=== PATIENT | male | born 1950 | race Hispanic/Latino ===

== ENCOUNTER 2017-07-31 07:37 | Day surgery (SDC) | payer OTHER ==
[2017-07-31] MEDS ORDERED: NS 0.9% VIAL 10 ML ONE (08:19)
[2017-07-31] MEDS ORDERED: PHENYLEPHRINE 10% OPTH 5ML OPTH ONE ×2 (08:35→08:40)
[2017-07-31] MEDS ORDERED: CYCLOPENTOLATE 1% OPTH 2 ML OPTH ONE ×2 (08:35→08:40)
[2017-07-31] MEDS ORDERED: NA CHLORIDE 0.9% 500 ML ONE (09:00)
[2017-07-31] MEDS ORDERED: LIDOCAINE 2% MPF 5 ML VIAL ONE ×2 (09:01→09:58)
[2017-07-31] MEDS ORDERED: BUPIVACAINE 0.25% PF 10 ML VIAL ONE (09:01)
[2017-07-31] MEDS ORDERED: TETRACAINE HCL 0.5% 2ML OPTH ONE (09:01)
[2017-07-31] MEDS ORDERED: CYCLOPENTOLATE 1% OPTH 2 ML ONE (09:01)
[2017-07-31] MEDS ORDERED: LIDOCAINE HCL/PF 3.5% OPTH GEL ONE (09:02)
[2017-07-31] MEDS ORDERED: PHENYLEPHRINE 10% OPTH 5ML ONE (09:02)
[2017-07-31] MEDS ORDERED: PROPOFOL 200 MG/20 ML VIAL IV ONE (09:58)
[2017-07-31] MEDS: EPINEPHRINE/PF 1 MG/ML AMP ONE ×2 (10:02→10:12)
[2017-07-31] MEDS: BALANCED SALT IRRIG PLAIN 500 ML BTL IRR ONE ×2 (10:02→10:12)
[2017-07-31] MEDS: MOXIFLOXACIN HCL 10 DROPS/ML **OR USE OPTH ONE ×2 (10:03→10:12)
[2017-07-31] MEDS: DUOVISC 1 KIT OPTH ONE ×2 (10:03→10:12)
--- NOTE | 2017-07-31 10:47 | P.BOP ---
Preoperative diagnosis: Nuclear sclerotic and posterior subcapsular cataract OS Postoperative diagnosis: Same Primary procedure: Phacoemulsification with IOL OS Estimated blood loss: None Anesthesia: Local (Subtenon's infusion with anesthesia for cataract surgery) Complications: None Implants: ZCB00 +19.5 Transferred to: Other (Day surgery) Condition: Good
--- NOTE | 2017-07-31 21:23 | OP ---
Date of Procedure: 07/31/2017 Surgeon: Namita Worley MD Anesthesiologist: 1. Dk. 2. Manuel De Jesus CRNA. 3. Cale Arellano M.D. Preoperative Diagnoses: Nuclear sclerotic and posterior subcapsular cataract OS (left eye). Operation Performed: Phacoemulsification with intraocular lens implant, OS (left eye). Anesthesia: Per cataract surgery. Complications: None. Description Of Procedure: In day surgery, the patient was prepped with Betadine and draped. A conju nctival incision was made in the inferior nasal quadrant with Marcellus scissors. A sub-Tenon block c onsisting of a 1:1 mixture of 2% Xylocaine and 0.25% bupivacaine was placed through the conjunctival incision with a blunt cannula. A Honan balloon was placed over the eye and the patient was transferr ed to the operating room. In the operating room the patient was prepped and draped in the usual sterile fashion for ophthalmic surgery. A lid speculum was placed in the OS. Two paracentesis sites were made superiorly and infer iorly in the limbal cornea. Viscoat was placed in the anterior chamber and a crescent blade was used to make a corneal groove and tunnel, and a keratome was used to enter the anterior chamber. Provisc was placed in the anterior chamber and a 360 degree capsulotomy was performed with a cystitome. The lens was hydrodissected with BSS and rotated freely. The lens was removed with a stop and chop tech nique. A 5.31 phaco CDE was used to remove the lens. Residual cortex was removed with the irrigatio n and aspiration. Provisc was placed in the capsular bag. A ZCB00 +19.5 diopter lens was placed in the capsular bag without complications. Irrigation and aspiration was used to remove residual viscoe lastic. The paracentesis sites were hydrated with BSS. The wound and paracentesis sites were inspec kana and found to be watertight. Vigamox 0.07 cc was placed intracamerally at the end of the procedur e. The eye was irrigated with balanced salt solution. The eye was patched with a soft cotton patch and Carmichael metal shield. The patient was returned to day surgery in good condition. Discharge Instructions: Mr. Plasencia is discharged to home in good condition and is to follow up with Vikas Worley in the morning. HECTOR/CHRISTINE Voice ID: [id number] Report ID: [id number]
== END 2017-07-31 11:27 | disposition home or self-care (01) ==
LOC: OR 07:37
PROVIDERS: ATTEND Ophthalmology Retina Specialist
PROC: 08RK3JZ Replacement of Left Lens with Synthetic Substitute, Percutaneous Approach (ICD-10-PCS; principal; 2017-07-31 09:50)
DX: H25.12 Age-related nuclear cataract, left eye (principal); H25.042 Posterior subcapsular polar age-related cataract, left eye; I10 Essential (primary) hypertension
CPT/HCPCS: 36415; 66984; 84132; J0171